=== PATIENT | female | born 1945 | race Caucasian/White ===

== ENCOUNTER → 2021-07-26 10:56 | Outpatient (CLI) | payer MEDICARE, OTHER, SELFPAY ==
[2021-07-26 14:12] LABS: BUN Creatinine Ratio 16.2 (6-22); Blood Urea Nitrogen 11 mg/dL (7-17); Carbon Dioxide 29 mmol/L (22-32); Chloride 97 mmol/L (98-107); Estimated Glomerular Filt Rate > 60 mL/min (>60); Glucose 92 mg/dL (80-110); HEMOLYSIS < 15 (0-50); Potassium 4.4 mmol/L (3.4-5.1); Sodium 134 mmol/L (137-145)
== END ==
PROVIDERS: PCP Family Medicine; Referring Provider Urology; Visit Provider Urology
DX: N13.30 Unspecified hydronephrosis (principal); R31.21 Asymptomatic microscopic hematuria; R10.9 Unspecified abdominal pain
CPT/HCPCS: 36415; 51798; 80048; 81002; 99213

== ENCOUNTER → 2022-02-27 09:34 | Outpatient (CLI) | payer MEDICARE, OTHER, SELFPAY ==
--- NOTE | 2022-02-27 | DI.RAD.S_ITS ---
PROCEDURE: FL UPPER GI SERIES INDICATIONS: ABDOMINAL BLOATING/CRAMPS COMPARISON: [facility], [place], CT IVP, 11/18/2020, 8:06. [facility], [place], US RETROPERITONEAL, 10/18/2021, 6:59. FINDINGS: KUB: Preprocedural professional sports scout film demonstrates a normal bowel gas pattern. No suspicious abdominal calcifications. Visualized solid organ contours appear normal. Bony structures appear unremarkable. Esophagus: Esophageal mucosa is normal on air-contrast views. There is mild esophageal peristalsis. No strictures, extrinsic mass effects, or diverticula. Small hiatal hernia. Moderate gastroesophageal reflux is present. There is normal transit of a calibrated barium tablet through the esophagus. Stomach: The stomach is normally distensible, with normal rugal fold thickness. No mucosal masses or ulcers. Pylorus and duodenal bulb appear normal in morphology. Duodenal folds are normal in thickness as well. IMPRESSION: 1. Small hiatal hernia. 2. Moderate gastroesophageal reflux. 3. Mild esophageal dysmotility. Dictated by: Milena Sauceda M.D. on 02/27/2022 at 10:52 Approved by: Milena Sauceda M.D. on 02/27/2022 at 10:54
== END ==
PROVIDERS: PCP Family Medicine; Referring Provider Family Medicine; Visit Provider Family Medicine
DX: K44.9 Diaphragmatic hernia without obstruction or gangrene (principal); K22.4 Dyskinesia of esophagus; K21.9 Gastro-esophageal reflux disease without esophagitis; R14.0 Abdominal distension (gaseous); R10.9 Unspecified abdominal pain
CPT/HCPCS: 74240

== ENCOUNTER → 2023-10-24 10:29 | Outpatient (CLI) | payer MEDICARE, OTHER, SELFPAY ==
[2023-10-24 11:59] LABS: BUN Creatinine Ratio 28.6 (6-22); Blood Urea Nitrogen 18 mg/dL (7-17); Calcium 9.2 mg/dL (8.4-10.2); Carbon Dioxide 30 mmol/L (22-32); Chloride 106 mmol/L (98-107); Estimated Glomerular Filt Rate > 60 mL/min (>60); Glucose 96 mg/dL (80-110); HEMOLYSIS < 15 (0-50); Potassium 4.6 mmol/L (3.4-5.1); Sodium 140 mmol/L (137-145)
== END ==
PROVIDERS: PCP Family Medicine; Referring Provider Urology; Visit Provider Urology
DX: R94.4 Abnormal results of kidney function studies (principal); N13.30 Unspecified hydronephrosis; Z87.448 Personal history of other diseases of urinary system
CPT/HCPCS: 36415; 51798; 80048; 81002; 99213